=== PATIENT | female | born 1995 | race Caucasian/White ===

== ENCOUNTER 2018-07-01 21:23 | Emergency (ER) | payer OTHER ==
[~2018-07-01] VITALS: Ht 154.9 cm; Wt 72.7 kg
[2018-07-01 21:24] VITALS: BP 120/89; TEMP 98.2
[2018-07-01 22:30] VITALS: PULSE 66
== END 2018-07-01 22:30 | disposition home or self-care (01) ==
LOC: COL.ER 21:23
DX: S93.402A Sprain of unspecified ligament of left ankle, initial encounter (principal); X50.1XXA Overexertion from prolonged static or awkward postures, initial encounter; Y93.66 Activity, soccer; Y92.322 Soccer field as the place of occurrence of the external cause